=== PATIENT | male | born 2000 | race Caucasian/White ===

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

== ENCOUNTER 2020-02-17 22:50 | Inpatient (IN) | payer MEDICAID, OTHER ==
--- NOTE | 2020-02-17 23:44 | ED ---
Psych HPI - General Chief Complaint: Psychiatric Symptoms Stated Complaint: Mental health Time Seen by Provider: 02/17/20 23:23 Source: patient Mode of arrival: ambulatory - History of Present Illness Initial Comments: Patient is a 19-year-old male presenting to the emergency department for a psych evaluation. The mother did petition the patient. Patient states he got angry w ith his mother because she took his phone and he "is sick of being treated like a child." As he was trying to get his phone he shouted call on going to kill myself" and the mother took this seriously and drove him to the ER to petition him. He states he only said that out of anger trying to get his phone back. He denies any suicidal thoughts or homicidal thoughts today. He has been taking his medications as prescribed. He denies any alcohol or drug use. He has no further complaints at this time. Upon arrival to the ER, his vitals are stable. - Related Data Home Medications Medication Instructions Recorded Confirmed Atomoxetine HCl [Strattera] 60 mg PO DAILY 02/18/20 02/18/20 [place] Carbonate 900 mg PO HS 02/18/20 02/18/20 Previous Rx's Medication Instructions Recorded ARIPiprazole [Abilify] 5 mg PO HS 30 Days tab 10/18/19 Allergies Allergy/AdvReac Type Severity Reaction Status Date / Time No Known Allergies Allergy Verified 02/18/20 10:11 Review of Systems ROS Statement: Those systems with pertinent positive or pertinent negative responses have been documented in the HPI. ROS Other: All systems not noted in ROS Statement are negative. Past Medical History Past Medical History: No Reported History Additional Past Medical History / Comment(s): aspergers, tourettes, History of Any Multi-Drug Resistant Organisms: None Reported Past Surgical History: No Surgical Hx Reported Past Anesthesia/Blood Transfusion Reactions: No Reported Reaction Past Psychological History: ADD/ADHD Smoking Status: Current every day smoker Past Alcohol Use History: None Reported Past Drug Use History: None Reported General Exam - General Exam Comments Initial Comments: GENERAL: Well-appearing, well-nourished and in no acute distress. HEAD: Atraumatic, normocephalic. EYES: Pupils equal round and reactive to light, extraocular movements intact, sclera anicteric, conjunctiva are normal. ENT: TMs normal, nares patent, oropharynx clear without exudates. Moist mucous membranes. NECK: Normal range of motion, supple without lymphadenopathy or JVD. LUNGS: Breath sounds clear to auscultation bilaterally and equal. No wheezes rales or rhonchi. HEART: Regular rate and rhythm without murmurs, rubs or gallops. ABDOMEN: Soft, nontender, normoactive bowel sounds. No guarding, no rebound. No masses appreciated. : Deferred EXTREMITIES: Normal range of motion, no pitting or edema. No clubbing or cyanosis. NEUROLOGICAL: Normal speech, normal gait. PSYCH: Normal mood, normal affect. SKIN: Warm, Dry, normal turgor, no rashes or lesions noted. Limitations: no limitations Course Vital Signs 02/17/20 02/18/20 02/18/20 22:54 06:00 14:00 Temperature 98.3 F 97.9 F 97.3 F L Pulse Rate 98 55 L 66 Respiratory 18 16 18 Rate Blood Pressure 133/77 94/48 87/61 O2 Sat by Pulse 97 100 96 Oximetry 02/18/20 17:00 Temperature 98.0 F Pulse Rate 62 Respiratory 18 Rate Blood Pressure 98/66 O2 Sat by Pulse 98 Oximetry Medical Decision Making - Medical Decision Making Patient is a 19-year-old male here for psychiatric evaluation. He was petitioned by his mother. No suicidal or homicidal thoughts today. Exam normal. Patient was evaluated by EPS. They recommended admission. - Lab Data Result diagrams: 02/18/20 02:59 02/18/20 02:59 Lab Results 02/18/20 02/18/20 02/18/20 Range/Units 02:59 02:59 03:05 WBC 7.0 (4.0-11.0) k/uL RBC 4.85 (4.30-5.90) m/uL Hgb 15.1 (13.0-17.5) gm/dL Hct 45.5 (39.0-53.0) % MCV 93.7 (80.0-100.0) fL MCH 31.0 (25.0-35.0) pg MCHC 33.1 (31.0-37.0) g/dL RDW 12.4 (11.5-15.5) % Plt Count 170 (150-450) k/uL Neutrophils % 55 % Lymphocytes % 31 % Monocytes % 5 % Eosinophils % 5 % Basophils % 1 % Neutrophils # 3.9 (1.3-7.7) k/uL Lymphocytes # 2.2 (1.0-4.8) k/uL Monocytes # 0.4 (0-1.0) k/uL Eosinophils # 0.4 (0-0.7) k/uL Basophils # 0.1 (0-0.2) k/uL Sodium 138 (137-145) mmol/L Potassium 3.8 (3.5-5.1) mmol/L Chloride 106 (98-107) mmol/L Carbon Dioxide 24 (22-30) mmol/L Anion Gap 8 mmol/L BUN 16 (9-20) mg/dL Creatinine 0.85 (0.66-1.25) mg/dL Est GFR (CKD-EPI)AfAm >90 (>60 ml/min/1.73 sqM) Est GFR (CKD-EPI)NonAf >90 (>60 ml/min/1.73 sqM) Glucose 109 H (74-99) mg/dL Calcium 9.3 (8.4-10.2) mg/dL Total Bilirubin 0.3 (0.2-1.3) mg/dL AST 22 (17-59) U/L ALT 26 (4-49) U/L Alkaline Phosphatase 55 (38-126) U/L Total Protein 6.8 (6.3-8.2) g/dL Albumin 4.2 (3.5-5.0) g/dL Urine Color Yellow Urine Appearance Cloudy (Clear) Urine pH 7.0 (5.0-8.0) Ur Specific [place] 1.026 (1.001-1.035) Urine Protein Trace H (Negative) Urine Glucose (UA) Negative (Negative) Urine Ketones Negative (Negative) Urine Blood Negative (Negative) Urine Nitrite Negative (Negative) Urine Bilirubin Negative (Negative) Urine Urobilinogen <2.0 (<2.0) mg/dL Ur Leukocyte Esterase Negative (Negative) Urine RBC 1 (0-5) /hpf Urine WBC 4 (0-5) /hpf Amorphous Sediment Rare H (None) /hpf Urine Bacteria Occasional H (None) /hpf Urine Mucus Few H (None) /hpf Urine Opiates Screen Not Detected (NotDetected) Ur Oxycodone Screen Not Detected (NotDetected) Urine Methadone Screen Not Detected (NotDetected) Ur Propoxyphene Screen Not Detected (NotDetected) Ur Barbiturates Screen Not Detected (NotDetected) U Tricyclic Antidepress Not Detected (NotDetected) Ur Phencyclidine Scrn Not Detected (NotDetected) Ur Amphetamines Screen Not Detected (NotDetected) U Methamphetamines Scrn Not Detected (NotDetected) U Benzodiazepines Scrn Not Detected (NotDetected) Urine Cocaine Screen Not Detected (NotDetected) U Marijuana (THC) Screen Not Detected (NotDetected) Disposition Clinical Impression: Depression, Suicidal ideations Disposition: TRANSFER TO PSYCH HOSP/UNIT Condition: Stable
[2020-02-18 03:13] LABS: Basophils # (A) 0.1 k/uL (0-0.2); Basophils % (A) 1 %; Eosinophils # (A) 0.4 k/uL (0-0.7); Eosinophils % (A) 5 %; HCT 45.5 % (39.0-53.0); HGB 15.1 gm/dL (13.0-17.5); Lymphocytes # (A) 2.2 k/uL (1.0-4.8); Lymphocytes % (A) 31 %; MCHC 33.1 g/dL (31.0-37.0); MCV 93.7 fL (80.0-100.0); Mean Platelet Volume 8.6; Monocytes # (A) 0.4 k/uL (0-1.0); Monocytes % (A) 5 %; Neutrophils # (A) 3.9 k/uL (1.3-7.7); Neutrophils % (A) 55 %; Platelet Count 170 k/uL (150-450); RBC 4.85 m/uL (4.30-5.90); RDW 12.4 % (11.5-15.5)
[2020-02-18 03:34] LABS: ALT 26 U/L (4-49); AST 22 U/L (17-59); African American GFR (CKD) >90 (>60 ml/min/1.73 sqM); Albumin 4.2 g/dL (3.5-5.0); Alkaline Phosphatase 55 U/L (38-126); Anion Gap 8 mmol/L; Blood Urea Nitrogen 16 mg/dL (9-20); Calcium 9.3 mg/dL (8.4-10.2); Carbon Dioxide 24 mmol/L (22-30); Chloride 106 mmol/L (98-107); Glucose 109 mg/dL (74-99); Non-African American GFR(CKD) >90 (>60 ml/min/1.73 sqM); Potassium 3.8 mmol/L (3.5-5.1); Sodium 138 mmol/L (137-145); Total Bilirubin 0.3 mg/dL (0.2-1.3); Total Protein 6.8 g/dL (6.3-8.2)
[2020-02-18 03:53] LABS: Amorphous Sediment,Urine Rare /hpf; Amphetamine Screen,Urine Not Detected (NotDetected); Appearance,Urine Cloudy (Clear); Bacteria,Urine Occasional /hpf; Barbiturate Screen,Urine Not Detected (NotDetected); Benzodiazepines Screen,Urine Not Detected (NotDetected); Bilirubin,Urine Negative (Negative); Blood,Urine Negative (Negative); Cocaine Screen,Urine Not Detected (NotDetected); Color,Urine Yellow; Glucose,Urine (UA) Negative (Negative); Ketones,Urine Negative (Negative); Leukocyte Esterase,Urine Negative (Negative); Methadone Screen, Urine Not Detected (NotDetected); Mucus,Urine Few /hpf; Nitrite,Urine Negative (Negative); Opiate Screen,Urine Not Detected (NotDetected); Oxycodone Screen, Urine Not Detected (NotDetected); Phencyclidine Screen,Urine Not Detected (NotDetected); Protein,Urine Trace (Negative); RBC,Urine 1 /hpf (0-5); Specific Gravity,Urine 1.026 (1.001-1.035); Tricyclic Antidepressant,Urine Not Detected (NotDetected); Urn Cannabinoid Scrn Not Detected (NotDetected); Urobilinogen,Urine <2.0 mg/dL (<2.0); WBC,Urine 4 /hpf (0-5)
[2020-02-18] MEDS ORDERED: LORazepam 1 MG TAB PO PRN (16:59)
[2020-02-18] MEDS ORDERED: MAGNESIUM HYDROXIDE 2,400 MG/10 ML CUP PO PRN (16:59)
[2020-02-18] MEDS ORDERED: ZIPRASIDONE 20 MG VIAL IM PRN (16:59)
[2020-02-18] MEDS ORDERED: MAG HYDROX/AL HYDROX/SIMETH 30 ML CUP PO PRN (16:59)
[2020-02-18] MEDS ORDERED: ACETAMINOPHEN TAB 325 MG TAB PO PRN (16:59)
[2020-02-18] MEDS ORDERED: LORazepam 2 MG/ML INJ IM PRN (17:02)
[2020-02-18] MEDS: NICOTINE 14MG/24HR PATCH TRANSDERM SCH (19:05)
[2020-02-18] MEDS ORDERED: ARIPiprazole 5 MG TAB PO SCH (21:00)
[2020-02-18] MEDS: LITHIUM CARBONATE 300 MG CAP PO SCH (21:15)
[2020-02-19] MEDS: NICOTINE 14MG/24HR PATCH TRANSDERM SCH (08:39)
[2020-02-19 10:00] LABS: Lithium 0.5 mmol/L
--- NOTE | 2020-02-19 12:03 | P.HP ---
Psychiatric H&P - . H&P Date: 02/19/20 History & Physical: Allergies Allergy/AdvReac Type Severity Reaction Status Date / Time No Known Allergies Allergy Verified 02/18/20 10:11 Vital Signs Temp 98.1 F 02/19/20 07:05 Pulse 60 02/19/20 07:05 Resp 14 02/19/20 07:05 BP 119/71 02/19/20 07:05 Pulse Ox 97 02/19/20 07:05 Intake & Output 02/18/20 02/19/20 02/19/20 18:59 06:59 18:59 Weight 89.993 kg 89.993 kg Laboratory Last Values WBC 7.0 k/uL (4.0-11.0) 02/18/20 02:59 RBC 4.85 m/uL (4.30-5.90) 02/18/20 02:59 Hgb 15.1 gm/dL (13.0-17.5) 02/18/20 02:59 Hct 45.5 % (39.0-53.0) 02/18/20 02:59 MCV 93.7 fL (80.0-100.0) 02/18/20 02:59 MCH 31.0 pg (25.0-35.0) 02/18/20 02:59 MCHC 33.1 g/dL (31.0-37.0) 02/18/20 02:59 RDW 12.4 % (11.5-15.5) 02/18/20 02:59 Plt Count 170 k/uL (150-450) 02/18/20 02:59 Neutrophils % 55 % 02/18/20 02:59 Lymphocytes % 31 % 02/18/20 02:59 Monocytes % 5 % 02/18/20 02:59 Eosinophils % 5 % 02/18/20 02:59 Basophils % 1 % 02/18/20 02:59 Neutrophils # 3.9 k/uL (1.3-7.7) 02/18/20 02:59 Lymphocytes # 2.2 k/uL (1.0-4.8) 02/18/20 02:59 Monocytes # 0.4 k/uL (0-1.0) 02/18/20 02:59 Eosinophils # 0.4 k/uL (0-0.7) 02/18/20 02:59 Basophils # 0.1 k/uL (0-0.2) 02/18/20 02:59 Sodium 138 mmol/L (137-145) 02/18/20 02:59 Potassium 3.8 mmol/L (3.5-5.1) 02/18/20 02:59 Chloride 106 mmol/L (98-107) 02/18/20 02:59 Carbon Dioxide 24 mmol/L (22-30) 02/18/20 02:59 Anion Gap 8 mmol/L 02/18/20 02:59 BUN 16 mg/dL (9-20) 02/18/20 02:59 Creatinine 0.85 mg/dL (0.66-1.25) 02/18/20 02:59 Est GFR (CKD-EPI)AfAm >90 (>60 ml/min/1.73 sqM) 02/18/20 02:59 Est GFR (CKD-EPI)NonAf >90 (>60 ml/min/1.73 sqM) 02/18/20 02:59 Glucose 109 mg/dL (74-99) H 02/18/20 02:59 Calcium 9.3 mg/dL (8.4-10.2) 02/18/20 02:59 Total Bilirubin 0.3 mg/dL (0.2-1.3) 02/18/20 02:59 AST 22 U/L (17-59) 02/18/20 02:59 ALT 26 U/L (4-49) 02/18/20 02:59 Alkaline Phosphatase 55 U/L (38-126) 02/18/20 02:59 Total Protein 6.8 g/dL (6.3-8.2) 02/18/20 02:59 Albumin 4.2 g/dL (3.5-5.0) 02/18/20 02:59 Triglycerides 92 mg/dL (<150) 02/19/20 08:37 Cholesterol 160 mg/dL (<200) 02/19/20 08:37 LDL Cholesterol, Calc 94 mg/dL (0-99) 02/19/20 08:37 HDL Cholesterol 48 mg/dL (40-60) 02/19/20 08:37 TSH 6.310 mIU/L (0.465-4.680) H 02/19/20 08:37 Urine Color Yellow 02/18/20 03:05 Urine Appearance Cloudy (Clear) 02/18/20 03:05 Urine pH 7.0 (5.0-8.0) 02/18/20 03:05 Ur Specific [place] 1.026 (1.001-1.035) 02/18/20 03:05 Urine Protein Trace (Negative) H 02/18/20 03:05 Urine Glucose (UA) Negative (Negative) 02/18/20 03:05 Urine Ketones Negative (Negative) 02/18/20 03:05 Urine Blood Negative (Negative) 02/18/20 03:05 Urine Nitrite Negative (Negative) 02/18/20 03:05 Urine Bilirubin Negative (Negative) 02/18/20 03:05 Urine Urobilinogen <2.0 mg/dL (<2.0) 02/18/20 03:05 Ur Leukocyte Esterase Negative (Negative) 02/18/20 03:05 Urine RBC 1 /hpf (0-5) 02/18/20 03:05 Urine WBC 4 /hpf (0-5) 02/18/20 03:05 Amorphous Sediment Rare /hpf (None) H 02/18/20 03:05 Urine Bacteria Occasional /hpf (None) H 02/18/20 03:05 Urine Mucus Few /hpf (None) H 02/18/20 03:05 Urine Opiates Screen Not Detected (NotDetected) 02/18/20 03:05 Ur Oxycodone Screen Not Detected (NotDetected) 02/18/20 03:05 Urine Methadone Screen Not Detected (NotDetected) 02/18/20 03:05 Ur Propoxyphene Screen Not Detected (NotDetected) 02/18/20 03:05 Ur Barbiturates Screen Not Detected (NotDetected) 02/18/20 03:05 U Tricyclic Antidepress Not Detected (NotDetected) 02/18/20 03:05 Ur Phencyclidine Scrn Not Detected (NotDetected) 02/18/20 03:05 Ur Amphetamines Screen Not Detected (NotDetected) 02/18/20 03:05 U Methamphetamines Scrn Not Detected (NotDetected) 02/18/20 03:05 U Benzodiazepines Scrn Not Detected (NotDetected) 02/18/20 03:05 [place] 0.5 mmol/L 02/19/20 08:37 Urine Cocaine Screen Not Detected (NotDetected) 02/18/20 03:05 U Marijuana (THC) Screen Not Detected (NotDetected) 02/18/20 03:05 02/19/20 11:37 IDENTIFYING DATA: Patient is a 19-year-old male who currently lives with his mother who is currently his guardian has no kids and currently unemployed. HPI: Patient presented to the hospital with his mother/guardian. Mother filled out a petition which clean the patient has been threatening suicide and has been physically and verbally aggressive and not taking his medications as prescribed and was having poor hygiene. Patient was also reportedly having verbal and physical fights with his siblings and other family members at home according to mother's petition. As per ER report claims that patient had been angry with mother about taking his phone and yelled out that he was given a kill himself. Patient had previously be seen on the mental health unit and discharged in September 2019. Patient was on Abilify by mouth 5 mg and at that time was abusing Adderall and advised to discontinue. Patient was agreeable to be seen by publications writer and appeared to be somewhat irritable irritable today. He claimed that he never attacked his mother and claimed that his mother was "making up all these lies". He states that he did not attack any of his siblings as described in the petition. He claims that "people in my family don't like me anymore". He claims that he recently moved into his mother's house 2 days ago and states that they have gone into many arguments since then. He endorsed significant paranoia about his mother believing that other people are out to hurt him and that he is in an unsafe place which is why he believes that his mother wants him to move back with her. He claims that he feels persecuted against between him and his girlfriend. He describes some anger episodes and irritability. He claims that he is trying to move to [place] to be on his own. He claims that his mother has been "taking my stuff and my money". He claims that his sleep is fair and appetite is fair. He denied any suicidal intent or ideations and claims that he only said that to his mother because he is feeling "angry at that time". He claims that he has been taking his medications however the petition by mother claims that he has not been. Patient denies any suicidal or homicidal ideations intent or plan. At this time patient denies any auditory or visual hallucinations. Patient admits to using no recreational substances at this time and denies any cigarette use. PAST PSYCHIATRIC HISTORY: Patient states that he has a history of psychosis unspecified and ADHD. Patient was previously on lithium 900 mg daily at bedtime for mood stabilization and also Abilify 5 mg by mouth daily. Patient denies any previous psychiatric hospitalizations. He claims that he has been following up with Dr. Murphy at [facility]. Dates that he had 1 previous suicide attempt when he was 9 years old and he tried to hang himself. PMH:denies ALLERGIES: as per EMR CHEMICAL DEPENDENCY HISTORY: as per HPI FAMILY PSYCHIATRIC/SUBSTANCE USE HISTORY: He states that his mother had attempted suicide in the past and is unaware of her diagnosis. SOCIAL HISTORY: Patient is currently single has a girlfriend has no children is currently unemployed and has 2 brothers and 1 sister. Patient is currently on probation. He claims that he graduated high school and did have some special education classes. He was previously charged after making threats to vandalize an individual's car. MENTAL STATUS EXAM: General Appearance: Patient appears to be well built, stated age is alert, directable, and irritable at times. Patient appears to have poor hygiene and grooming. Behavior: Patient is seated without any agitated behavior. Irritable at times. Speech: Patient's speech is fluent and nonpressured. Mood/Affect: Patient reports their mood is "okay", affect is congruent and constricted. Suicidality/Homicidality: Patient denies having any homicidal ideation intent or plan. Denies any suicidal ideations intent or plan Perceptions: Patient denies any visual hallucinations and denies any auditory hallucinations Though content/process: There is no evidence of any delusional thought content and thought process is linear and goal-directed. [place]. Poor insight. Minimizing his symptoms. Memory and concentration: AOX3, grossly intact for the purposes of this session. Can spell "WORLD" backwards Judgment and insight: poor STRENGTHS/WEAKNESSES: strength is that patient is resilient. Weakness is that patient has poor judgment and is impulsive INTELLECT: average IMPRESSIONS: Psychosis unspecified, rule out intermittent explosive disorder. PLAN: -Patient is admitted under involuntary status to MHU for stabilization of psychiatric symptoms and safety. Patient signed medication consent and is placed in patient's chart. A second certification was completed and along with petition will be filed for court. -Medications : Will start patient on Abilify 7.5 mg daily for mood stabilization/psychosis with plan to transition patient on 2 Abilify Maintenna to ensure compliance. Continue with lithium 900 mg daily at bedtime for mood stabilization. -Ativan and Geodon PRN for agitation/aggression -Patient was informed of the risks, benefits and side effects of the medication and patient verbally consented to taking the medications. Patient signed med consent form and was placed in chart. -Internal Medicine consult to perform medical evaluation and physical. -NRT -not needed this patient does not smoke. -SW on board for discharge planning. Encourage patient to participate in groups to work on coping skills. 02/19/20 11:54
[2020-02-19] MEDS: LITHIUM CARBONATE 300 MG CAP PO SCH (21:16)
--- NOTE | 2020-02-19 22:02 | CONS ---
CONSULTATION CHIEF COMPLAINT: Agitated behavior and psychosis? HISTORY OF PRESENT ILLNESS: This is the first known admission for this 19-year-old white male. Apparently he had got into an argument was his mother and became aggressive and he wound up in the emergency room and being admitted to the psych unit. He has not been on the psych service before. REVIEW OF SYSTEMS: He has had no headaches, neurologic changes, change in vision or hearing, chest pain, shortness of breath, cough, murmurs, rheumatic fever, hypertension, chest pain, orthopnea, PND, abdominal pain, nausea, vomiting, hematemesis, melena, hematochezia, jaundice, renal failure, hematuria, dysuria, frequency, urgency, incontinence, diabetes, etc. Past medical history, family history, and personal and social histories are unremarkable and noncontributory otherwise. He is NOT ALLERGIC TO ANY MEDICATION. He is on Adderall extended-release 20 mg twice a day and an additional 10 mg once a day. He does not smoke or drink. PHYSICAL EXAMINATION: Temperature is 99.6, respirations 16, pulse 80, blood pressure 130/90. In general he appeared to be well developed, well nourished, in no acute distress. Skin color is normal. Skin is warm and dry. Lymph nodes are not enlarged. Head, ears, eyes, nose, mouth and throat were normal. Neck veins were not distended. Thyroid is not enlarged. Chest is clear. Cardiac exam is normal. Abdomen is soft, nontender. Extremities are normal. IMPRESSION: 1. Depression. 2. Aggressive personality. 3. Anger management issue. 4. ? psychosis. 5. Attention deficit disorder. RECOMMENDATIONS: None. MMODL / IJN: [id number] /
[2020-02-20] MEDS: ARIPiprazole 5 MG TAB PO SCH (09:32)
--- NOTE | 2020-02-20 10:06 | P.PN ---
Progress Note - Text Progress Note Date: 02/20/20 Interval History: Patient was seen wandering the hallways and was directable and agreeable to ryan davies with auto service writer in the office. Patient had recently just taken his medications this morning. He claims that his irritability and anger have been gradually improving since being hospitalized. He continues to perseverate on his mother wanting to "control me" and spoke about his finances and not having his independence from his mother. Patient was agreeable to have a family meeting with his mother over the phone within the next couple of days prior to discharge. He states that he is getting along fine with other patients on the unit. He states that he slept well last night. He continues to endorse some paranoia however this has been mildly improving. He states that he has a fair appetite. At this time patient denies any suicidal or homical ideations, intent or plan. Patient denies any auditory, visual hallucinations. Patient denies any side effects from the medications and has been compliant with meds. Mental Status Exam: General Appearance: Patient appears to be well built, stated age is alert, directable, less irritable today. Patient appears to have improving hygiene and grooming. Behavior: Patient is seated without any agitated behavior. Less irritable today Speech: Patient's speech is fluent and nonpressured. Mood/Affect: Patient reports their mood is "ok", affect is congruent and constricted. Suicidality/Homicidality: Patient denies having any homicidal ideation intent or plan. Denies any suicidal ideations intent or plan Perceptions: Patient denies any visual hallucinations and denies any auditory hallucinations Though content/process: There is no evidence of any delusional thought content and thought process is linear and goal-directed. [place]. Poor insight. Mild paranoia about being controlled by his mother. Memory and concentration: AOX3, grossly intact for the purposes of this session. Judgment and insight: poor, mildly improving Assessment Psychosis unspecified, rule out intermittent explosive disorder. Plan: -Patient continues to meet criteria for inpatient psychiatric admission for symptom stabilization and safety. Patient has signed medication consent and was placed in patient's chart. Patient is currently under involuntary status and petition and 2 clinical certificates were filed for court and currently awaiting court date and deferral date. -Medications: Continue with Abilify 7.5 mg daily for mood stabilization/psychos is with the plan to titrate up. Plan will be to give patient Abilify Maintenna 400 mg IM dose in the next 1-2 days to ensure compliance. Continue with lithium 900 mg nightly for mood stabilization. -When necessary Ativan and Geodon for agitation/aggression. -NRT -not needed as patient does not smoke. -SW on board for discharge planning. Encouraged the patient to participate in milieu. Likely discharge in 2-3 days.
[2020-02-20] MEDS: LITHIUM CARBONATE 300 MG CAP PO SCH (21:16)
[2020-02-21] MEDS: ARIPiprazole 5 MG TAB PO SCH (09:35)
[2020-02-21 09:38] VITALS: RESP 20
--- NOTE | 2020-02-21 12:47 | P.PN ---
Progress Note - Text Progress Note Date: 02/21/20 Interval History: Patient was seen wandering the hallways and was directable and agreeable to ryan davies with health science writer in the office. Patient had recently just taken his medications this morning and states that he feels medications are helping him stay calmer. He claims that his irritability and anger has been improving on the current medications. He states that he try to call his mother yesterday and told to come visit however she was not able to do to work. He claims that he is agreeable to continue on with his medications and have the dose increased of his Abilify for tomorrow. Patient is also agreeable to have the Abilify Maintenna dose given to him tomorrow. He states that he is getting along fine with other patients on the unit and claims that he feels safe and does not endorse any paranoia at this time. He states that he slept well last night. He states that he has a fair appetite. At this time patient denies any suicidal or homical ideations, intent or plan. Patient denies any auditory, visual hallucinations. Patient denies any side effects from the medications and has been compliant with meds. Mental Status Exam: General Appearance: Patient appears to be well built, stated age is alert, directable, less irritable today. Patient appears to have improving hygiene and grooming. Behavior: Patient is seated without any agitated behavior. Less irritable today Speech: Patient's speech is fluent and nonpressured. Mood/Affect: Patient reports their mood is "good", affect is congruent and constricted. Suicidality/Homicidality: Patient denies having any homicidal ideation intent or plan. Denies any suicidal ideations intent or plan Perceptions: Patient denies any visual hallucinations and denies any auditory hallucinations Though content/process: There is no evidence of any delusional thought content and thought process is linear and goal-directed. [place]. Memory and concentration: AOX3, grossly intact for the purposes of this session. Judgment and insight: mildly improving Assessment Psychosis unspecified, rule out intermittent explosive disorder. Plan: -Patient continues to meet criteria for inpatient psychiatric admission for symptom stabilization and safety. Patient has signed medication consent and was placed in patient's chart. Patient is currently under involuntary status and petition and 2 clinical certificates were filed for court and currently awaiting court date and deferral date. -Medications: Increased Abilify 10 mg daily for mood stabilization/psychosis with the plan to titrate up. Plan will be to give patient Abilify Maintenna 400 mg IM dose tomorrow to ensure compliance. Continue with lithium 900 mg nightly for mood stabilization. -When necessary Ativan and Geodon for agitation/aggression. -NRT -not needed as patient does not smoke. -SW on board for discharge planning. Encouraged the patient to participate in milieu. Likely discharge tomorrow after patient receives his Abilify Maintenna. Block Hand will speak with patient's mother over the phone today after work to discuss discharge planning and answer any questions and address concerns at home.
[2020-02-21] MEDS: LITHIUM CARBONATE 300 MG CAP PO SCH (21:14)
[2020-02-22] MEDS ORDERED: ARIPiprazole 10 MG TAB PO SCH (09:00)
[2020-02-22 09:14] VITALS: BP 128/69; PULSE 83; TEMP 98.5
--- NOTE | 2020-02-22 09:57 | P.DS ---
Providers Date of admission: 02/18/20 16:49 Expected date of discharge: 02/22/20 Attending physician: Marcelo Villanueva MD Consults: 02/18/20 16:59 Consult Physician Routine Consulting Provider: Anatoly Gimenez Consult Reason/Comments: H&P and medical Do you want consulting provider notified?: Yes Primary care physician: Anatoly Gimenez - Discharge Diagnosis(es) (1) Unspecified psychosis Current Visit: Yes Status: Acute Priority: High (2) Intermittent explosive disorder Current Visit: Yes Status: Acute Priority: Medium Hospital Course: Admission HPI: Patient is a 19-year-old male who currently lives with his mother who is currently his guardian has no kids and currently unemployed. Patient presented to the hospital with his mother/guardian. Mother filled out a petition which clean the patient has been threatening suicide and has been physically and verbally aggressive and not taking his medications as prescribed and was having poor hygiene. Patient was also reportedly having verbal and physical fights with his siblings and other family members at home according to mother's petition. As per ER report claims that patient had been angry with mother about taking his phone and yelled out that he was given a kill himself. Patient had previously be seen on the mental health unit and discharged in September 2019. Patient was on Abilify by mouth 5 mg and at that time was abusing Adderall and advised to discontinue. Patient was agreeable to be seen by typewriter tester and appeared to be somewhat irritable irritable today. He claimed that he never attacked his mother and claimed that his mother was "making up all these lies". He states that he did not attack any of his siblings as described in the petition. He claims that "people in my family don't like me anymore". He claims that he recently moved into his mother's house 2 days ago and states that they have gone into many arguments since then. He endorsed significant paranoia about his mother believing that other people are out to hurt him and that he is in an unsafe place which is why he believes that his mother wants him to move back with her. He claims that he feels persecuted against between him and his girlfriend. He describes some anger episodes and irritability. He claims that he is trying to move to [place] to be on his own. He claims that his mother has been "taking my stuff and my money". He claims that his sleep is fair and appetite is fair. He denied any suicidal intent or ideations and claims that he only said that to his mother because he is feeling "angry at that time". He claims that he has been taking his medications however the petition by mother claims that he has not been. Patient denies any suicidal or homicidal ideations intent or plan. At this time patient denies any auditory or visual hallucinations. Patient admits to using no recreational substances at this time and denies any cigarette use. Hospital course: Upon admission to the unit patient was initially labile and irritable. Patient was brought in on petition and certificate and a second certificate was completed and filed the court. Patient ended up deferring court over the phone with the criminal defense attorney and was directable and agreeable to continue on with treatment. Patient got along well with other patients on the unit and followed unit protocol. Patient was compliant with the medications and denied any side effects throughout hospital course. Patient was started on Abilify by mouth and titrated up to a dose of 10 mg daily for psychosis/mood stabilization and patient was transitioned onto Abilify Maintenna 400 mg IM which was given on 02/22/2020. Patient was also started on lithium 900 mg daily at bedtime for mood stabilization. Patient spoke of his stressors and engaged in therapy both group and individual. Patient was also seen by medical team for history and physical exam. Throughout the course of the hospitalization patient gradually improved with regards to mood lability, irritability, sleep and became future oriented with improved insight and judgment. On the day of discharge patient denied any suicidal or homicidal ideations intent or plan denied any auditory or visual hallucinations. Patient endorsed wanting to live for his health and family. The patient denied any access to guns or weapons. Patient denied any paranoia and did not endorse any delusions. Patient does not have a significant history of substance abuse however was counseled on abstaining from all substances including alcohol and marijuana. Patient was also counseled on the medications and need for regular compliance and was encouraged to follow-up with their outpatient appointment for mental health and also for primary care. Prior to discharge typewriter tester spoke with patient's mother/guardian over the phone at [phone] Shayla to discuss patient's treatment planning for the future and also patient's symptoms and medications. Patient's mother stated that patient was for the most part noncompliant with his medications and was agreeable to have patient started on Abilify Maintenna to ensure compliance and follow-up with [facility] Mental status exam: General Appearance: Patient appears to be stated age is well-built, alert, pleasant, and cooperative. Patient is in no acute distress and has fair hygiene and grooming Behavior: Patient is calmly seated without any agitated behavior. Speech: Patient's speech is fluent and nonpressured. Mood/Affect: Patient reports their mood is "much better", affect is congruent and euthymic. Suicidality/Homicidality: Patient denies having any suicidal or homicidal ideation intent or plan. Perceptions: Patient denies any auditory or visual hallucinations. Though content/process: There is no evidence of any delusional thought content and thought process is linear and goal-directed. more future oriented Memory and concentration: AOX3, grossly intact for the purposes of this session. Can spell "WORLD" backwards correctly. Judgment and insight: Improved with guarded prognosis Impression: Psychosis unspecified Intermittent explosive disorder Plan: -Continue with discharge today as patient has improved and stabilized p sychiatrically and is not currently an imminent threat to himself and/or others. -Continue medications: Patient to be continued on Abilify by mouth 10 mg daily for psychosis/mood stabilization for 14 days and then to be discontinued. Patient received Abilify Maintenna 400 mg IM given on 02/22/2020 and next dose will be due on 03/21/2020 and monthly thereafter. Patient to be continued on lithium 900 mg daily at bedtime for mood stabilization. -Patient was counseled on the need for medication compliance and appropriate follow-up at mental health and also primary care for medical issues. Patient verbalized understanding and agreed. -Social work to arrange for and conduct family meeting to ensure safety upon discharge and answer any questions/concerns. Social work also to arrange for patients follow up appointments with [facility] for psychiatric care along with follow up with primary care provider. -Patient counseled on abstaining from recreational drugs and marijuana and alcohol. Was informed/educated on the adverse effects on their physical and mental health. Patient verbally agreed and understood. -Patient was instructed to return to the hospital or seek immediate medical care if their psychiatric or medical symptoms do worsen or reoccur. Allergies Allergy/AdvReac Type Severity Reaction Status Date / Time No Known Allergies Allergy Verified 02/18/20 10:11 Laboratory Results WBC 7.0 k/uL (4.0-11.0) 02/18/20 02:59 RBC 4.85 m/uL (4.30-5.90) 02/18/20 02:59 Hgb 15.1 gm/dL (13.0-17.5) 02/18/20 02:59 Hct 45.5 % (39.0-53.0) 02/18/20 02:59 MCV 93.7 fL (80.0-100.0) 02/18/20 02:59 MCH 31.0 pg (25.0-35.0) 02/18/20 02:59 MCHC 33.1 g/dL (31.0-37.0) 02/18/20 02:59 RDW 12.4 % (11.5-15.5) 02/18/20 02:59 Plt Count 170 k/uL (150-450) 02/18/20 02:59 Neutrophils % 55 % 02/18/20 02:59 Lymphocytes % 31 % 02/18/20 02:59 Monocytes % 5 % 02/18/20 02:59 Eosinophils % 5 % 02/18/20 02:59 Basophils % 1 % 02/18/20 02:59 Neutrophils # 3.9 k/uL (1.3-7.7) 02/18/20 02:59 Lymphocytes # 2.2 k/uL (1.0-4.8) 02/18/20 02:59 Monocytes # 0.4 k/uL (0-1.0) 02/18/20 02:59 Eosinophils # 0.4 k/uL (0-0.7) 02/18/20 02:59 Basophils # 0.1 k/uL (0-0.2) 02/18/20 02:59 Sodium 138 mmol/L (137-145) 02/18/20 02:59 Potassium 3.8 mmol/L (3.5-5.1) 02/18/20 02:59 Chloride 106 mmol/L (98-107) 02/18/20 02:59 Carbon Dioxide 24 mmol/L (22-30) 02/18/20 02:59 Anion Gap 8 mmol/L 02/18/20 02:59 BUN 16 mg/dL (9-20) 02/18/20 02:59 Creatinine 0.85 mg/dL (0.66-1.25) 02/18/20 02:59 Est GFR (CKD-EPI)AfAm >90 (>60 ml/min/1.73 sqM) 02/18/20 02:59 Est GFR (CKD-EPI)NonAf >90 (>60 ml/min/1.73 sqM) 02/18/20 02:59 Glucose 109 mg/dL (74-99) H 02/18/20 02:[address] Glu mg/dL 97 02/19/20 08:37 Hemoglobin A1c 5.0 % (4.0-6.0) 02/19/20 08:37 Calcium 9.3 mg/dL (8.4-10.2) 02/18/20 02:59 Total Bilirubin 0.3 mg/dL (0.2-1.3) 02/18/20 02:59 AST 22 U/L (17-59) 02/18/20 02:59 ALT 26 U/L (4-49) 02/18/20 02:59 Alkaline Phosphatase 55 U/L (38-126) 02/18/20 02:59 Total Protein 6.8 g/dL (6.3-8.2) 02/18/20 02:59 Albumin 4.2 g/dL (3.5-5.0) 02/18/20 02:59 Triglycerides 92 mg/dL (<150) 02/19/20 08:37 Cholesterol 160 mg/dL (<200) 02/19/20 08:37 LDL Cholesterol, Calc 94 mg/dL (0-99) 02/19/20 08:37 HDL Cholesterol 48 mg/dL (40-60) 02/19/20 08:37 TSH 6.310 mIU/L (0.465-4.680) H 02/19/20 08:37 Urine Color Yellow 02/18/20 03:05 Urine Appearance Cloudy (Clear) 02/18/20 03:05 Urine pH 7.0 (5.0-8.0) 02/18/20 03:05 Ur Specific [employer] 1.026 (1.001-1.035) 02/18/20 03:05 Urine Protein Trace (Negative) H 02/18/20 03:05 Urine Glucose (UA) Negative (Negative) 02/18/20 03:05 Urine Ketones Negative (Negative) 02/18/20 03:05 Urine Blood Negative (Negative) 02/18/20 03:05 Urine Nitrite Negative (Negative) 02/18/20 03:05 Urine Bilirubin Negative (Negative) 02/18/20 03:05 Urine Urobilinogen <2.0 mg/dL (<2.0) 02/18/20 03:05 Ur Leukocyte Esterase Negative (Negative) 02/18/20 03:05 Urine RBC 1 /hpf (0-5) 02/18/20 03:05 Urine WBC 4 /hpf (0-5) 02/18/20 03:05 Amorphous Sediment Rare /hpf (None) H 02/18/20 03:05 Urine Bacteria Occasional /hpf (None) H 02/18/20 03:05 Urine Mucus Few /hpf (None) H 02/18/20 03:05 Urine Opiates Screen Not Detected (NotDetected) 02/18/20 03:05 Ur Oxycodone Screen Not Detected (NotDetected) 02/18/20 03:05 Urine Methadone Screen Not Detected (NotDetected) 02/18/20 03:05 Ur Propoxyphene Screen Not Detected (NotDetected) 02/18/20 03:05 Ur Barbiturates Screen Not Detected (NotDetected) 02/18/20 03:05 U Tricyclic Antidepress Not Detected (NotDetected) 02/18/20 03:05 Ur Phencyclidine Scrn Not Detected (NotDetected) 02/18/20 03:05 Ur Amphetamines Screen Not Detected (NotDetected) 02/18/20 03:05 U Methamphetamines Scrn Not Detected (NotDetected) 02/18/20 03:05 U Benzodiazepines Scrn Not Detected (NotDetected) 02/18/20 03:05 [place] 0.5 mmol/L 02/19/20 08:37 Urine Cocaine Screen Not Detected (NotDetected) 02/18/20 03:05 U Marijuana (THC) Screen Not Detected (NotDetected) 02/18/20 03:05 Vital Signs Temp 98.5 F 02/22/20 09:06 Pulse 83 02/22/20 09:06 Resp 20 02/22/20 09:06 BP 128/69 02/22/20 09:06 Pulse Ox 96 02/22/20 09:06 Patient Condition at Discharge: Stable Plan - Discharge Summary Discharge Rx Participant: No New Discharge Prescriptions: New ARIPiprazole [Abilify] 10 mg PO DAILY 14 Days tab ARIPiprazole IM [Abilify Maintena] 400 mg IM QMONTH #1 vial [place] Carbonate 900 mg PO HS 30 Days cap Acetaminophen Tab [Tylenol] 650 mg PO Q4HR PRN tab PRN Reason: Pain/Discomfort Continue Atomoxetine HCl [Strattera] 60 mg PO DAILY Discontinued ARIPiprazole [Abilify] 5 mg PO HS 30 Days tab [place] Carbonate 900 mg PO HS Discharge Medication List Atomoxetine HCl [Strattera] 60 mg PO DAILY 02/18/20 [History] ARIPiprazole IM [Abilify Maintena] 400 mg IM QMONTH #1 vial 02/22/20 [Rx] ARIPiprazole [Abilify] 10 mg PO DAILY 14 Days tab 02/22/20 [Rx] Acetaminophen Tab [Tylenol] 650 mg PO Q4HR PRN tab 02/22/20 [Rx] [place] Carbonate 900 mg PO HS 30 Days cap 02/22/20 [Rx] Follow up Appointment(s)/Referral(s): Anatoly Gimenez MD [Primary Care Provider] - 1-2 days Activity/Diet/Wound Care/Special Instructions: Activity and diet as tolerated. Avoid the use of street drugs and alcohol. Take all medications as prescribed. When you are in need of refills on your medications please contact your medical provider and/or outpatient psychiatrist to have this done. Please go to scheduled outpatient appointment for aftercare treatment. If symptoms return or become worse, call the crisis line at and/or go to the nearest emergency room for evaluation. Discharge Disposition: HOME SELF-CARE
[2020-02-22] MEDS ORDERED: ARIPiprazole IM SYRINGE 400 MG (NO CHARGE) PHARMACY STOCK IM ONE (10:30)
== END 2020-02-22 16:00 | disposition home or self-care (01) | DRG 885 ==
LOC: EC 22:50 → EEVIPCON 22:50 → 3MHU 02-18 16:49
PROVIDERS: ADMIT Psychiatry & Neurology Psychiatry; ATTEND Psychiatry & Neurology Psychiatry
DX: F29 Unspecified psychosis not due to a substance or known physiological condition (principal); F63.81 Intermittent explosive disorder; F90.9 Attention-deficit hyperactivity disorder, unspecified type; T43.216A Underdosing of selective serotonin and norepinephrine reuptake inhibitors, initial encounter; Z91.128 Patient's intentional underdosing of medication regimen for other reason; Z91.5 Personal history of self-harm; Z79.899 Other long term (current) drug therapy; Z81.8 Family history of other mental and behavioral disorders; Z65.3 Problems related to other legal circumstances
CPT/HCPCS: 36415; 80053; 80061; 80178; 80306; 81001; 82075; 83036; 84443; 85025; 99284

== ENCOUNTER 2022-08-21 11:56 | Emergency (ER) | payer OTHER ==
[2022-08-21] MEDS ORDERED: SODIUM CHLORIDE 0.9% 1,000 ML IV STA (13:13)
[2022-08-21] MEDS ORDERED: DICYCLOMINE 10 MG/ML 2 ML AMP IM STA (13:13)
[2022-08-21] MEDS ORDERED: FAMOTIDINE 20 MG/2 ML VIAL IV STA (13:14)
--- NOTE | 2022-08-21 13:19 | ED ---
General Adult HPI - General Chief complaint: GI Bleed Stated complaint: blood in stool Time Seen by Provider: 08/21/22 12:40 Source: patient, RN notes reviewed Mode of arrival: ambulatory Limitations: no limitations - History of Present Illness Initial comments: Patient is a pleasant 22-year-old male presenting to the emergency department with concerns for rectal bleeding. Patient has been on azithromycin for sinus infection for the past 3 days. Patient does have some discomfort in his abdomen. Patient does have sinus congestion and cough that has been improving. Patient did test negative. COVID-19 infection. Patient is having some rectal discomfort and bleeding with bowel movements only. No emesis. - Related Data Home Medications Medication Instructions Recorded Confirmed Azithromycin [Zithromax Z Pack] See Taper PO DIRECTED 08/21/22 08/21/22 Allergies Allergy/AdvReac Type Severity Reaction Status Date / Time No Known Allergies Allergy Verified 08/21/22 13:40 Review of Systems ROS Statement: Those systems with pertinent positive or pertinent negative responses have been documented in the HPI. ROS Other: All systems not noted in ROS Statement are negative. Constitutional: Denies: fever Eyes: Denies: eye pain ENT: Reports: congestion. Denies: ear pain Respiratory: Reports: cough Cardiovascular: Denies: chest pain Endocrine: Denies: fatigue Gastrointestinal: Reports: as per HPI, abdominal pain Skin: Denies: rash Neurological: Denies: weakness Past Medical History Past Medical History: No Reported History Additional Past Medical History / Comment(s): aspergers, tourettes, History of Any Multi-Drug Resistant Organisms: None Reported Past Surgical History: No Surgical Hx Reported Past Anesthesia/Blood Transfusion Reactions: No Reported Reaction Past Psychological History: ADD/ADHD Smoking Status: Never smoker Past Alcohol Use History: None Reported Past Drug Use History: Marijuana General Exam Limitations: no limitations General appearance: alert, in no apparent distress Head exam: Present: normocephalic Eye exam: Present: normal appearance Neck exam: Present: normal inspection Respiratory exam: Present: normal lung sounds bilaterally Cardiovascular Exam: Present: regular rate, normal rhythm GI/Abdominal exam: Present: soft, tenderness (Mild diffuse tenderness). Absent: distended Rectal exam: Present: hemorrhoids ([id number] external hemorrhoid around the 7 o'clock position. There is minimal blood. There is tenderness.) Extremities exam: Present: normal inspection Neurological exam: Present: alert Psychiatric exam: Present: normal affect, normal mood Skin exam: Present: normal color Course Vital Signs 08/21/22 08/21/22 12:00 15:11 Temperature 97.9 F 98.2 F Pulse Rate 69 71 Respiratory 20 19 Rate Blood Pressure 125/84 117/79 O2 Sat by Pulse 99 98 Oximetry Medical Decision Making - Medical Decision Making Patient reevaluated and updated - Lab Data Result diagrams: 08/21/22 13:43 08/21/22 13:43 Lab Results 08/21/22 08/21/22 08/21/22 Range/Units 13:43 13:43 13:43 WBC 5.3 (3.8-10.6) k/uL RBC 5.04 (4.30-5.90) m/uL Hgb 16.0 (13.0-17.5) gm/dL Hct 45.5 (39.0-53.0) % MCV 90.2 (80.0-100.0) fL MCH 31.6 (25.0-35.0) pg MCHC 35.1 (31.0-37.0) g/dL RDW 11.6 (11.5-15.5) % Plt Count 156 (150-450) k/uL MPV 9.6 Neutrophils % 50 % Lymphocytes % 37 % Monocytes % 7 % Eosinophils % 2 % Basophils % 1 % Neutrophils # 2.6 (1.3-7.7) k/uL Lymphocytes # 2.0 (1.0-4.8) k/uL Monocytes # 0.4 (0-1.0) k/uL Eosinophils # 0.1 (0-0.7) k/uL Basophils # 0.1 (0-0.2) k/uL PT 10.5 (9.0-12.0) sec INR 1.0 (<1.2) APTT 24.4 (22.0-30.0) sec Sodium 140 (137-145) mmol/L Potassium 4.1 (3.5-5.1) mmol/L Chloride 109 H (98-107) mmol/L Carbon Dioxide 24 (22-30) mmol/L Anion Gap 7 mmol/L BUN 14 (9-20) mg/dL Creatinine 0.76 (0.66-1.25) mg/dL Est GFR (CKD-EPI)AfAm >90 (>60 ml/min/1.73 sqM) Est GFR (CKD-EPI)NonAf >90 (>60 ml/min/1.73 sqM) Glucose 98 (74-99) mg/dL Calcium 8.9 (8.4-10.2) mg/dL Total Bilirubin 0.3 (0.2-1.3) mg/dL AST 34 (17-59) U/L ALT 42 (4-49) U/L Alkaline Phosphatase 59 (38-126) U/L Total Protein 7.3 (6.3-8.2) g/dL Albumin 4.7 (3.5-5.0) g/dL Amylase 49 (30-110) U/L Lipase 40 (23-300) U/L Influenza Type A (PCR) (Not Detectd) Influenza Type B (PCR) (Not Detectd) RSV (PCR) (Not Detectd) SARS-CoV-2 (PCR) (Not Detectd) 08/21/22 Range/Units 14:03 WBC (3.8-10.6) k/uL RBC (4.30-5.90) m/uL Hgb (13.0-17.5) gm/dL Hct (39.0-53.0) % MCV (80.0-100.0) fL MCH (25.0-35.0) pg MCHC (31.0-37.0) g/dL RDW (11.5-15.5) % Plt Count (150-450) k/uL MPV Neutrophils % % Lymphocytes % % Monocytes % % Eosinophils % % Basophils % % Neutrophils # (1.3-7.7) k/uL Lymphocytes # (1.0-4.8) k/uL Monocytes # (0-1.0) k/uL Eosinophils # (0-0.7) k/uL Basophils # (0-0.2) k/uL PT (9.0-12.0) sec INR (<1.2) APTT (22.0-30.0) sec Sodium (137-145) mmol/L Potassium (3.5-5.1) mmol/L Chloride (98-107) mmol/L Carbon Dioxide (22-30) mmol/L Anion Gap mmol/L BUN (9-20) mg/dL Creatinine (0.66-1.25) mg/dL Est GFR (CKD-EPI)AfAm (>60 ml/min/1.73 sqM) Est GFR (CKD-EPI)NonAf (>60 ml/min/1.73 sqM) Glucose (74-99) mg/dL Calcium (8.4-10.2) mg/dL Total Bilirubin (0.2-1.3) mg/dL AST (17-59) U/L ALT (4-49) U/L Alkaline Phosphatase (38-126) U/L Total Protein (6.3-8.2) g/dL Albumin (3.5-5.0) g/dL Amylase (30-110) U/L Lipase (23-300) U/L Influenza Type A (PCR) Not Detected (Not Detectd) Influenza Type B (PCR) Not Detected (Not Detectd) RSV (PCR) Detected A (Not Detectd) SARS-CoV-2 (PCR) Not Detected (Not Detectd) - Radiology Data Radiology results: report reviewed (Computed tomography scan abdomen pelvis does not reveal acute abnormality) Disposition Clinical Impression: Rectal bleeding, External hemorrhoid, RSV infection Disposition: HOME SELF-CARE Condition: Stable Instructions (If sedation given, give patient instructions): Gastrointestinal Bleeding (ED), Respiratory Syncytial Virus (ED), Hemorrhoids (ED) Additional Instructions: Please follow-up with primary care physician in the next day or 2 for recheck. Return for increased pain, bleeding, lightheadedness, source of breath, worsening symptoms or other concerns. Is patient prescribed a controlled substance at d/c from ED?: No Referrals: Anatoly Gimenez MD [Primary Care Provider] - 1-2 days Time of Disposition: 15:44
[2022-08-21 13:57] LABS: Basophils # (A) 0.1 k/uL (0-0.2); Basophils % (A) 1 %; Eosinophils # (A) 0.1 k/uL (0-0.7); Eosinophils % (A) 2 %; HCT 45.5 % (39.0-53.0); Lymphocytes % (A) 37 %; MCH 31.6 pg (25.0-35.0); MCHC 35.1 g/dL (31.0-37.0); MCV 90.2 fL (80.0-100.0); Mean Platelet Volume 9.6; Monocytes # (A) 0.4 k/uL (0-1.0); Monocytes % (A) 7 %; Neutrophils # (A) 2.6 k/uL (1.3-7.7); Neutrophils % (A) 50 %; Platelet Count 156 k/uL (150-450); RBC 5.04 m/uL (4.30-5.90); RDW 11.6 % (11.5-15.5); WBC 5.3 k/uL (3.8-10.6)
[2022-08-21 14:08] LABS: Partial Thromboplastin Time 24.4 sec (22.0-30.0); Prothrombin Time 10.5 sec (9.0-12.0)
[2022-08-21 14:12] LABS: ALT 42 U/L (4-49); AST 34 U/L (17-59); African American GFR (CKD) >90 (>60 ml/min/1.73 sqM); Albumin 4.7 g/dL (3.5-5.0); Alkaline Phosphatase 59 U/L (38-126); Amylase 49 U/L (30-110); Anion Gap 7 mmol/L; Blood Urea Nitrogen 14 mg/dL (9-20); Calcium 8.9 mg/dL (8.4-10.2); Carbon Dioxide 24 mmol/L (22-30); Glucose 98 mg/dL (74-99); Lipase 40 U/L (23-300); Non-African American GFR(CKD) >90 (>60 ml/min/1.73 sqM); Potassium 4.1 mmol/L (3.5-5.1); Sodium 140 mmol/L (137-145); Total Bilirubin 0.3 mg/dL (0.2-1.3); Total Protein 7.3 g/dL (6.3-8.2)
[2022-08-21 14:32] LABS: Chloride 109 mmol/L (98-107)
--- NOTE | 2022-08-21 14:55 | CT ---
EXAMINATION TYPE: CT abdomen pelvis w con DATE OF EXAM: 08/21/2022 COMPARISON: None HISTORY: Abdominal pain, blood in stool CT DLP: 1329.4 mGycm Automated exposure control for dose reduction was used. CONTRAST: Performed with IV Contrast, patient injected with 100 mL of Isovue 300. Images obtained from the diaphragm to the floor the pelvis with IV contrast. The lung bases are clear. No pleural effusion. Heart size is normal. No pericardial effusion. Liver s pleen and stomach pancreas gallbladder appear normal. The bile ducts are not dilated. There is no adrenal mass. Kidneys show satisfactory contrast opacification. There is no hydronephrosi s. Appendix is posterior and medial and appears normal. There is no retroperitoneal adenopathy. The b ladder distends smoothly. No inguinal hernia. No free fluid in the pelvis. No pelvic mass. There is no mesenteric edema. No ascites or free air. No sign of a bowel obstruction. No intestinal wall thickening. The lumbar vertebra have normal alignment. Posterior elements are intact. No compression fracture. [place] pelvis is intact. The hip joints are intact. IMPRESSION: Negative CT scan abdomen and pelvis. Normal appendix. No sign of inflammatory bowel disease.
[2022-08-21 15:12] VITALS: BP 117/79; PULSE 71; RESP 19; TEMP 98.2
== END 2022-08-21 16:00 | disposition home or self-care (01) ==
LOC: EC 11:56 → EEVIPCON 11:56 → EC 16:00
DX: K62.5 Hemorrhage of anus and rectum (principal); K64.4 Residual hemorrhoidal skin tags; B97.4 Respiratory syncytial virus as the cause of diseases classified elsewhere; F12.90 Cannabis use, unspecified, uncomplicated; Z20.822 Contact with and (suspected) exposure to COVID-19
CPT/HCPCS: 36415; 74177; 80053; 82150; 83690; 85025; 85610; 85730; 87636; 96361; 96372; 96374; 99285

== ENCOUNTER 2022-11-23 04:13 | Emergency (ER) | payer OTHER ==
[2022-11-23 05:03] VITALS: BP 123/80; PULSE 69; RESP 16; TEMP 97.8
--- NOTE | 2022-11-23 05:27 | XR ---
EXAMINATION TYPE: XR foot complete RT DATE OF EXAM: 11/23/2022 CLINICAL HISTORY: Pain after injury. TECHNIQUE: Frontal, lateral, and oblique images of the right foot are obtained. Fourth extra view of the fifth toe was obtained. COMPARISON: None FINDINGS: There is no acute fracture/dislocation evident in the right foot with particular attention to the fifth toe. The joint spaces in the right foot appear within normal limits. The overlying so ft tissue appears unremarkable. IMPRESSION: As above.
[2022-11-23] MEDS ORDERED: ACET/COD 300 MG/30 MG STARTER PACK 6 TAB BTL PO STA (06:13)
[2022-11-23] MEDS ORDERED: IBUPROFEN 600 MG STARTER PACK 4 TAB BTL PO STA (06:13)
--- NOTE | 2022-11-23 06:13 | ED ---
Lower Extremity Injury HPI - General Chief Complaint: Extremity Injury, Lower Stated Complaint: Right Foot Injury Time Seen by Provider: 11/23/22 05:59 Source: patient, RN notes reviewed Mode of arrival: wheelchair Limitations: no limitations - History of Present Illness Initial Comments: This is a 22-year-old male who presents to the emergency department for a right foot injury. Patient states that at work last night, he accidentally kicked a wall with his right foot. He has since had pain and swelling as well as difficulty ambulating as a result of the pain. He has not yet applied ice or taken anything for the pain. The majority of the pain is in the right fifth toe. Denies any fevers, chills, sore throat, cough, dyspnea, chest pain, palpitations, abdominal pain, nausea, vomiting, diarrhea, or back pain. MD Complaint: foot injury Onset/Timin -: days(s) Injury: Foot: Right Worsens With: weight bearing Context: direct blow - Related Data Home Medications Medication Instructions Recorded Confirmed Azithromycin [Zithromax Z Pack] See Taper PO DIRECTED 08/21/22 08/21/22 Allergies Allergy/AdvReac Type Severity Reaction Status Date / Time No Known Allergies Allergy Verified 11/23/22 05:00 Review of Systems ROS Statement: Those systems with pertinent positive or pertinent negative responses have been documented in the HPI. ROS Other: All systems not noted in ROS Statement are negative. Past Medical History Past Medical History: No Reported History Additional Past Medical History / Comment(s): aspergers, tourettes, History of Any Multi-Drug Resistant Organisms: None Reported Past Surgical History: No Surgical Hx Reported Past Anesthesia/Blood Transfusion Reactions: No Reported Reaction Past Psychological History: ADD/ADHD Smoking Status: Never smoker Past Alcohol Use History: None Reported Past Drug Use History: Marijuana General Exam Limitations: no limitations General appearance: alert, in no apparent distress Head exam: Present: atraumatic, normocephalic, normal inspection Respiratory exam: Present: normal lung sounds bilaterally. Absent: respiratory distress, wheezes, rales, rhonchi, stridor Cardiovascular Exam: Present: regular rate, normal rhythm, normal heart sounds. Absent: systolic murmur, diastolic murmur, rubs, gallop, clicks Extremities exam: Present: other (Swelling to the dorsal aspect of the right foot. Full passive range of motion. Particular tenderness to palpation over the right fifth toe. 2+ DP and TP pulses. Capillary refill less than 1 second.) Neurological exam: Present: alert, oriented X3, CN II-XII intact Psychiatric exam: Present: normal affect, normal mood Skin exam: Present: warm, dry, intact, normal color. Absent: rash Course Vital Signs 11/23/22 05:01 Temperature 97.8 F Pulse Rate 69 Respiratory 16 Rate Blood Pressure 123/80 O2 Sat by Pulse 97 Oximetry Medical Decision Making - Medical Decision Making This is a 22-year-old male who presents to the emergency department for a right foot injury. Was pt. sent in by a medical professional or institution? @ -No Did you speak to anyone other than the patient for history? @ -No Did you review nursing and triage notes? @ -Yes, and I agree, it is accurate with regards to the patient's symptoms. Were old charts reviewed? @ -No Differential Diagnosis? @ -Differential Foot Injury: -Fracture, dislocation, contusion, sprain, this is not meant to be an all- inclusive list. X-rays interpreted by me (1pt min.)? @ -X-ray of the right foot obtained. My interpretation identifies soft tissue swelling and no acute fractures. What testing was considered but not performed? (CT, X-rays, U/S, labs)? Why? @ -None What meds were considered but not given? Why? @ -None Did you discuss the management of the patient with other professionals? @ -No Did you reconcile home meds? @ -No Was smoking cessation discussed for >3mins.? @ -No Was critical care preformed (if so, how long)? @ -No Were there social determinants of health that impacted care today? How? (Homelessness, low income, unemployed, alcoholism, drug addiction, transportation, low edu. Level, literacy, decrease access to med. care, penitentiary, rehab)? @ -No Was there de-escalation of care discussed even if they declined? (Discuss DNR or withdrawal of care, Hospice)? @ -No What co-morbidities impacted this encounter? (DM, HTN, Smoking, COPD, CAD, Cancer, CVA, Hep., AIDS, mental health diagnosis, sleep apnea, morbid obesity)? @ -Morbid obesity Was patient admitted / discharged? @ -Discharged. X-ray of the right foot obtained revealing no acute findings. Symptoms most consistent with a foot contusion. Patient is instructed to alter beni with ibuprofen and tylenol for pain relief and apply ice to the foot for 15-20 minutes every 2-3 hours for the first 2-3 days followed by heat there afterwards. He was provided with a postop shoe and crutches to be used as needed. Undiagnosed new problem with uncertain prognosis? @ -None Drug Therapy requiring intensive monitoring for toxicity (Heparin, Nitro, Insulin, Cardizem)? @ -None Were any procedures done? @ -None Diagnosis/symptom? @ -Right foot contusion Acute, or Chronic, or Acute on Chronic? @ -Acute Uncomplicated (without systemic symptoms) or Complicated (systemic symptoms)? @ -Uncomplicated Side effects of treatment? @ -None Exacerbation, Progression, or Severe Exacerbation] @ -Not applicable Poses a threat to life or bodily function? @ -Will make it difficult to walk for a few days. Return precautions reviewed in depth, the patient is instructed to return to the emergency department with any new, worsening, or concerning symptoms. Patient verbalized understanding. This case was discussed in detail with the attending ED physician, Dr. Gonzalez. Presentation, findings, and treatment plan discussed in detail as well. - Radiology Data Radiology results: report reviewed, image reviewed Disposition Clinical Impression: Right foot injury Disposition: HOME SELF-CARE Instructions (If sedation given, give patient instructions): Foot Contusion (ED) Additional Instructions: Return to the emergency department with any new, worsening, or concerning symptoms. Alternate with ibuprofen and Tylenol as needed for pain relief. Apply ice for 15-20 minutes every 2-3 hours and keep the foot elevated. Follow up with your primary care provider in 1-2 days. Is patient prescribed a controlled substance at d/c from ED?: No Referrals: Anatoly Gimenez MD [Primary Care Provider] - 1-2 days
== END 2022-11-23 06:30 | disposition home or self-care (01) ==
LOC: EC 04:13
DX: S90.31XA Contusion of right foot, initial encounter (principal); F12.90 Cannabis use, unspecified, uncomplicated; W22.01XA Walked into wall, initial encounter
CPT/HCPCS: 99283